=== PATIENT | female | born 1955 | race Caucasian/White ===

== ENCOUNTER → 2016-04-05 | Outpatient (CLI) | payer MEDICARE, MEDICAID ==
[~2016-04-05] MED LIST: ASPI81TA85 PO; CALC600T7 PO; CLAR10CA3 PO; COLA100C PO; CYCL10TA PO; DOCU10CA PO; FOSA70TA PO; HYDR25TAB PO; LISI10TA4 PO; LORT5TAB PO; NAPR500T2 PO; ROSU10TA PO; TRAM50TA2 PO; TYLE325T5 PO
--- NOTE | 2016-04-05 12:17 | REPMRS ---
Patient History The patient states she has not had a clinical breast exam in over a year. Patient is postmenopausal. Family history of prostate cancer in father at age 50 or over and ovarian cancer in sister under age 50. Digital Woman Screen Mammo: April 05, 2016 - Exam #: [id number] Bilateral CC and MLO view(s) were taken. Technologist: Silke Pena, Technologist Prior study comparison: May 27, 2014, digital woman screen mammo performed at [facility]. June 01, 2013, digital woman screen mammo performed at [facility]. February 19, 2012, digital woman screen mammo performed at [facility]. FINDINGS: The breast tissue is almost entirely fat. There has been no change in the appearance of the mammogram from the prior studies. There is no interval development of dominant mass, architectural distortion, or clustered microcalcification typical of malignancy. ASSESSMENT: BI-RADS/ACR category 1 mammogram. Negative. Recommendation Routine screening mammogram of both breasts in 1 year (for women over age 40). This mammogram was interpreted with the aid of an FDA-approved computer-aided dectection system. Electronically Signed By: Moose Louis MD 04/05/16 [id number]
== END ==
LOC: M WHC 10:03
PROVIDERS: ATTEND Student in an Organized Health Care Education/Training Program
DX: Z12.31 Encounter for screening mammogram for malignant neoplasm of breast (principal)

== ENCOUNTER → 2016-05-24 | Outpatient (CLI) | payer MEDICARE, MEDICAID | LOC: M RAD 10:05 | PROVIDERS: ATTEND Podiatrist | DX: M66.871 Spontaneous rupture of other tendons, right ankle and foot (principal) ==

== ENCOUNTER → 2016-06-05 | Outpatient (CLI) | payer MEDICARE, MEDICAID ==
--- NOTE | 2016-06-05 11:13 | REP ---
MRI RIGHT ANKLE: TECHNIQUE: Sagittal proton density, STIR, axial proton density fat sat, T1, coronal proton density, STIR. Achilles, anterior tibial, posterior tibial, flexor hallucis longus, flexor digitorum longus, and peroneal tendons are all intact with no tear. Anterior and posterior talofibular, calcaneofibular, and deltoid ligaments are intact. Plantar fascia demonstrates no abnormal signal. There is no evidence of plantar fasciitis. The plantar tendon is intact. There is a relatively normal amount of joint fluid present. There is no ganglion cyst. There is no bone marrow edema or occult fracture. There is no osteochrondral defect of the tibial talar joint. IMPRESSION: Essentially unremarkable MRI right ankle. No evidence of tendon or ligament tear. Signed by Emiliano Batista MD 06/05/2016 12:43 P
== END ==
LOC: M RAD 09:24
PROVIDERS: ATTEND Podiatrist
DX: M66.871 Spontaneous rupture of other tendons, right ankle and foot (principal)

== ENCOUNTER → 2016-07-23 | Outpatient (CLI) | payer MEDICARE, MEDICAID ==
[~2016-07-23] MED LIST changes: -COLA100C PO; +COLA100C3 PO; +CRES10TA32 PO; +PANT40TA2 PO; -ROSU10TA PO
[2016-07-23 11:27] LABS: BASO # 0.1 K/mm3 (0.0-0.2); BASO % 0.6 % (0.0-1.0); EOS # 0.5 K/mm3 (0.0-0.50); EOS % 4.8 % (0.0-3.0); LARGE UNSTAINED CELL # 0.1 K/mm3 (0.0-0.4); LARGE UNSTAINED CELL % 1.1 % (0.0-4.0); LYMPH # 2.4 K/mm3 (1.5-4.5); LYMPH % 23.7 % (24.0-44.0); MEAN CORPUSCULAR HEMOGLOBIN 31.1 pg (27.0-33.0); MEAN CORPUSCULAR HGB CONC 33.9 g/dl (32.0-36.5); MEAN CORPUSCULAR VOLUME 91.9 fl (80.0-96.0); MONO # 0.5 K/mm3 (0.0-0.8); MONO % 4.4 % (0.0-5.0); NEUTROPHILS # 6.6 K/mm3 (1.8-7.7); NEUTROPHILS % 65.3 % (36.0-66.0); PLATELET COUNT, AUTOMATED 200 k/mm3 (150-450); RED CELL DISTRIBUTION WIDTH 12.5 % (11.5-14.5); WHITE BLOOD COUNT 10.1 K/mm3 (4.0-10.0)
[2016-07-23 11:30] LABS: ALBUMIN 3.7 GM/DL (3.2-5.2); ALBUMIN/GLOBULIN RATIO 1.12 (1.00-1.93); ALKALINE PHOSPHATASE 80 U/L (45-117); ALT/SGPT 21 U/L (12-78); ANION GAP 6 MEQ/L (8-16); AST/SGOT 11 U/L (15-37); BILIRUBIN,TOTAL 0.3 MG/DL (0.2-1.0); BLOOD UREA NITROGEN 14 MG/DL (7-18); CALCIUM LEVEL 8.6 MG/DL (8.5-10.1); CARBON DIOXIDE LEVEL 32 MEQ/L (21-32); CHLORIDE LEVEL 103 MEQ/L (98-107); CREATININE FOR GFR 0.77 MG/DL (0.55-1.02); GLOMERULAR FILTRATION RATE > 60.0 (>51); GLUCOSE, FASTING 108 MG/DL (70-105); POTASSIUM SERUM 3.9 MEQ/L (3.5-5.1); SODIUM LEVEL 141 MEQ/L (136-145)
--- NOTE | 2016-07-23 19:06 | ECGEPIP ---
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
== END ==
LOC: M LAB 10:22
PROVIDERS: ATTEND Podiatrist
DX: M21.619 Bunion of unspecified foot (principal)

== ENCOUNTER → 2016-08-02 | Day surgery (SDC) | payer MEDICARE, MEDICAID ==
[~2016-08-02] VITALS: Ht 180.3 cm; Wt 111.1 kg
[~2016-08-02] MED LIST changes: +BACITRACIN PWD 50,000 UNITS VIAL As Ordered ONE; +BUPIVACAINE HCL 0.5% 30 ML VIAL As Ordered ONE; +LIDOCAINE 2% INJ 100 MG/5 ML SDV (FOR ANES.) As Ordered ONE; +LIDOCAINE 2% MDV 20 ML VIAL As Ordered ONE; +LR 1,000 ML IV ONE; +MIDAZOLAM INJ 2 MG/2 ML VIAL (J2250) As Ordered ONE; +NEOSPORIN GU IRRIG 20 ML VIAL As Ordered ONE; +ONDANSETRON 4MG/2ML VIAL (J2405) As Ordered ONE; +PERCOCET 5MG/325MG TAB PO PRN; +PROPOFOL 200 MG/20 ML VIAL As Ordered ONE; +dexameTHASONE 4 MG/ML 1ML VIAL (J1100) As Ordered ONE; +fentaNYL 100 MCG/2 ML INJECTION (J3010) As Ordered ONE
[2016-08-02 11:05] VITALS: BP 142/83
--- NOTE | 2016-08-02 15:12 | REP ---
Clinical: Bunionectomy. Technique: Portable AP, lateral, bilateral oblique views of the right foot. Findings: The patient is status post bunionectomy with postsurgical changes involving the first metatarsal bone. Satisfactory alignment is noted. Overlying postsurgical soft tissue swelling and subcutaneous emphysema noted. Remainder examination appears normal. Impression: Status post bunionectomy procedure. Signed by Lloyd Cordova MD 08/02/2016 10:08 A
--- NOTE | 2016-08-03 10:57 | RO ---
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 PROCEDURE: HUMBERTO BUNIONECTOMY WITH INTERNAL SCREW FIXATION 3.0 mm x 22 mm x 1 RIGHT FOOT: KIDNER PROCEDURE, RIGHT FOOT, WITH BIOCOMPOSITE SCREW FIXATION 4.5 x 14 mm BONE ANCHOR SURGEON: Dr. Aamir Chen DPM BAKE ROOM WORKER: None. ANESTHESIA: Local MAC, irrigation dilute bacitracin, neomycin and polymyxin B solution. HEMOSTASIS: Ankle pneumatic tourniquet at 225 mmHg for 84 minutes. HARDWARE UTILIZED: Dart-Fire 3.0 x 22 mm headed compression screw and a BioComposite Corkscrew 4.5 x 14 mm. DESCRIPTION OF PROCEDURE: On 08/02/2016, this 60-year-old white female was taken from her hospital room to the operating room and placed on the operating table in the supine position. Following the induction of IV sedation and local and regional anesthesia, the right lower extremity was prepped and draped in the usual aseptic manner. The right lower extremity was elevated 45 degrees from the horizontal plane for the purpose of preoperative exsanguination of the limb. During this three minute time period, an ankle pneumatic tourniquet was applied just proximal to the medial and lateral malleolus, well-padded site. To further exsanguinate the limb, a Iglesia's Esmarch bandage was placed circumferentially, extending from digits to distal edge ankle pneumatic tourniquet. Ankle pneumatic tourniquet was rapidly inflated to 250 mmHg, purpose of intraoperative hemostasis. Iglesia's Esmarch bandage was removed. Right lower extremity was returned to the operating table, sterile draping was completed and the following procedure was performed: HUMBERTO BUNIONECTOMY WITH INTERNAL SCREW FIXATION 3.0 mm x 22 mm x 1 RIGHT FOOT: Attention was directed to the patient's right foot. There was noted to be a hallux valgus deformity. At this time, a 5 cm incision was placed over the first metatarsophalangeal joint medial to the extensor tendon. The incision was deepened through the subcutaneous tissues and all coursing venous tributaries were identified, underscored, clamped, cut, ligated and electrocoagulated as necessary. Dissection was carried down in the same plane and a linear capsulotomy was performed in the same plane as the original skin incision. The capsular and periosteal structures were then dissected free in one continuous layer dorsally, medially and laterally, thus creating a capsular periosteal type envelope. This allowed me to view the hypertrophied medial eminence of the first metatarsal, which was osteotomized from distal to proximal, through and through. This was extirpated from the wound. Dissection was then carried into the first intermetatarsal space where dissection was carried down to the level of the fibular sesamoid and the conjoined tendons were sharply dissected free from the fibular sesamoid. Humberto V-shaped osteotomy was then performed in the distal metaphysis of the first metatarsal with a long plantar and short dorsal wing. There was a small cyst noted on the distal aspect of the head of the first metatarsal, which was then curetted out to remove the lining of the cyst. The wound was then flushed with copious amounts of dilute bacitracin, neomycin and polymyxin B solution. Upon completion of this osteotomy, the capital fragment was transposed approximately one-third the width of the shaft of the first metatarsal and fixated with a 3.0 x 22 mm headless compression screw. The screw did not penetrate the inferior cartilage on direct visualization. Redundant cortical spike was then osteomized from dorsal to plantar, through and through and extirpated from the wound. Medial surface was rasped to a smooth contour with a handheld rasp. The wound was flushed with copious amounts of dilute bacitracin, neomycin and polymyxin B solution. Attention was directed towards closure where the capsular structures were coapted and maintained using #2-0 Monocryl in a simple interrupted type fashion. Subcutaneous tissues were coapted and maintained using #5-0 Monocryl in a simple interrupted type fashion. Skin incision was coapted and maintained using #5-0 Monocryl in a continuous subcuticular type fashion. This was additionally reinforced with Steri-Strips. Attention was then directed to the medial surface of the foot where the following procedure was performed: KIDNER PROCEDURE, RIGHT FOOT, WITH BIOCOMPOSITE SCREW FIXATION 4.5 x 14 mm BONE ANCHOR: Attention was directed to the patient's foot where there was noted to be hypertrophy of the tuberosity of the navicular, as well as an os tibialis externum. At this time, a lazy S incision was placed, measuring approximately 6 cm in length. Dissection was then carried down to the level of the posterior tibial tendon sheath, which was then entered. The tendon was traced in a distal direction and a periosteal incision was placed on the dorsal navicular. The end of the navicular was then exposed and the os tibialis externum was identified and then sharply dissected free from the posterior tibial tendon. Utilizing a bone anchor for positioning, an osteotomy was then placed through the hypertrophied navicular, thinning the prominence. Bone anchor was then placed into the bone utilizing the appropriate technique and tap . C-arm imagery was used to verify position of the BioComposite screw. Then, utilizing #2 FiberWire and TigerWire, the posterior tibial tendon was drawn into the navicular with a Tabby knot stitch, good apposition of the tendon and bone was noted. This was additionally reinforced utilizing #2 FiberWire along the periosteum of the navicular. The extensor sheath was repaired with #5-0 Monocryl in a simple interrupted type fashion, subcutaneous tissues were coapted and maintained using #4-0 Monocryl in a simple interrupted type fashion, skin incision was coapted and maintained using #4-0 Prolene in a simple interrupted and horizontal mattress type fashion. Following the completion of the surgical procedure, 4 mg of dexamethasone sodium phosphate was instilled around the first metatarsophalangeal joint region. A compressive dressing was then applied with Adaptic, 4 x 4's, 4 x 4 splints and Honey. A well-molded fiberglass cast was then placed with the patient's foot in dorsiflexion and in version. No areas of irritation were noted. When the tourniquet was released, instantaneous capillary filling time was noted to her right foot. The patient having apparently tolerated the surgical procedure well was taken from the operating room to the recovery room, vital signs stable, patient afebrile, further monitoring by the anesthesia department. All surgical specimens removed during the operative procedure were sent to pathology for gross microscopic examination. Postoperative instructions given upon discharge. JOHN
== END | disposition home or self-care (01) ==
LOC: M SDC 05:49
PROVIDERS: ATTEND Podiatrist
DX: M20.11 Hallux valgus (acquired), right foot (principal); M21.6X1 Other acquired deformities of right foot; I10 Essential (primary) hypertension; E78.5 Hyperlipidemia, unspecified; Z79.82 Long term (current) use of aspirin; Z79.899 Other long term (current) drug therapy; F17.210 Nicotine dependence, cigarettes, uncomplicated
CPT/HCPCS: 28238; 28296; 73630; 88300; 97116; C1713; C1776; J0690; J1100; J2250; J2405; J3010

== ENCOUNTER 2016-11-13 08:07 | Outpatient (RCR) | payer MEDICARE, MEDICAID ==
[~2016-11-13 08:07] MED LIST changes: -BACITRACIN PWD 50,000 UNITS VIAL As Ordered ONE; -BUPIVACAINE HCL 0.5% 30 ML VIAL As Ordered ONE; -COLA100C3 PO; +COLA100C5 PO; -LIDOCAINE 2% INJ 100 MG/5 ML SDV (FOR ANES.) As Ordered ONE; -LIDOCAINE 2% MDV 20 ML VIAL As Ordered ONE; -LR 1,000 ML IV ONE; -MIDAZOLAM INJ 2 MG/2 ML VIAL (J2250) As Ordered ONE; -NAPR500T2 PO; +NAPR500T3 PO; -NEOSPORIN GU IRRIG 20 ML VIAL As Ordered ONE; -ONDANSETRON 4MG/2ML VIAL (J2405) As Ordered ONE; -PERCOCET 5MG/325MG TAB PO PRN; -PROPOFOL 200 MG/20 ML VIAL As Ordered ONE; -dexameTHASONE 4 MG/ML 1ML VIAL (J1100) As Ordered ONE; -fentaNYL 100 MCG/2 ML INJECTION (J3010) As Ordered ONE
== END 2016-11-14 ==
LOC: M PT 08:07
PROVIDERS: ATTEND Podiatrist
DX: Z51.89 Encounter for other specified aftercare (principal)
CPT/HCPCS: 97035; 97110; 97140; 97161; G8978; G8979

== ENCOUNTER 2016-12-09 08:30 | Outpatient (RCR) | payer MEDICARE, MEDICAID | END 2016-12-14 | LOC: M PT 08:30 | PROVIDERS: ATTEND Podiatrist | DX: Z51.89 Encounter for other specified aftercare (principal) | CPT/HCPCS: 97035; 97110; 97140; G8979; G8980 ==

== ENCOUNTER → 2017-04-17 | Outpatient (REF) | payer MEDICARE, MEDICAID ==
[2017-04-17 19:06] LABS: BASO # 0.1 10^3/uL (0.0-0.2); BASO % 0.9 % (0.0-1.0); EOS # 0.3 10^3/uL (0.0-0.50); EOS % 3.2 % (0.0-3.0); HEMATOCRIT 46.8 % (36.0-47.0); HEMOGLOBIN 16.2 g/dl (12.0-16.0); IMMATURE GRANULOCYTE % 0.3 % (0-0); LYMPH # 2.5 10^3/uL (1.5-4.5); LYMPH % 28.1 % (24.0-44.0); MEAN CORPUSCULAR HGB CONC 34.6 g/dl (32.0-36.5); MEAN CORPUSCULAR VOLUME 86.7 fl (80.0-96.0); MONO # 0.7 10^3/uL (0.0-0.8); MONO % 7.4 % (0.0-5.0); NEUTROPHILS # 5.4 10^3/uL (1.8-7.7); NEUTROPHILS % 60.1 % (36.0-66.0); PLATELET COUNT, AUTOMATED 210 10^3/uL (150-450); RED CELL DISTRIBUTION WIDTH 12.4 % (11.5-14.5); WHITE BLOOD COUNT 8.9 10^3/uL (4.0-10.0)
[2017-04-17 19:09] LABS: ESTIMATED AVERAGE GLUCOSE 123 MG/DL (60-110); HEMOGLOBIN A1c 5.9 %
[2017-04-17 20:01] LABS: ALBUMIN 4.2 GM/DL (3.2-5.2); ALKALINE PHOSPHATASE 78 U/L (45-117); ALT/SGPT 18 U/L (12-78); ANION GAP 7 MEQ/L (8-16); AST/SGOT 10 U/L (7-37); BILIRUBIN,TOTAL 0.4 MG/DL (0.2-1.0); BLOOD UREA NITROGEN 14 MG/DL (7-18); CALCIUM LEVEL 9.1 MG/DL (8.8-10.2); CARBON DIOXIDE LEVEL 31 MEQ/L (21-32); CHLORIDE LEVEL 101 MEQ/L (98-107); CHOLESTEROL LEVEL 167 MG/DL (<200); CHOLESTEROL RISK RATIO 2.929 (<5); CREATININE FOR GFR 0.85 MG/DL (0.55-1.30); GLOMERULAR FILTRATION RATE > 60.0 (>45); GLUCOSE, FASTING 122 MG/DL (70-100); HDL CHOLESTEROL 57 MG/DL (>40); LDL CHOLESTEROL 77.2 MG/DL (<100); NON-HDL-C 110 MG/DL; POTASSIUM SERUM 3.6 MEQ/L (3.5-5.1); SODIUM LEVEL 139 MEQ/L (136-145); TOTAL PROTEIN 7.2 GM/DL (6.4-8.2); TRIGLYCERIDES LEVEL 164 MG/DL (<150)
== END ==
LOC: M SFHCPLAZ 15:40
DX: Z00.00 Encounter for general adult medical examination without abnormal findings (principal); J44.9 Chronic obstructive pulmonary disease, unspecified; I10 Essential (primary) hypertension; M54.9 Dorsalgia, unspecified; J30.9 Allergic rhinitis, unspecified; M85.9 Disorder of bone density and structure, unspecified; K59.00 Constipation, unspecified; Z79.899 Other long term (current) drug therapy
CPT/HCPCS: 80053

== ENCOUNTER → 2017-04-17 | Outpatient (CLI) | payer MEDICARE, MEDICAID | LOC: M WHC 13:57 | DX: Z12.31 Encounter for screening mammogram for malignant neoplasm of breast (principal); Z78.0 Asymptomatic menopausal state; J44.9 Chronic obstructive pulmonary disease, unspecified; I10 Essential (primary) hypertension; M54.9 Dorsalgia, unspecified; J30.9 Allergic rhinitis, unspecified; M85.9 Disorder of bone density and structure, unspecified; K59.00 Constipation, unspecified; Z79.899 Other long term (current) drug therapy | CPT/HCPCS: 77067; 80053 ==

== ENCOUNTER → 2017-06-17 | Outpatient (REF) | payer MEDICARE, MEDICAID ==
[2017-06-17 12:11] LABS: ERYTHROCYTE SEDIMENTATION RATE 4 mm/hr (0-30)
[2017-06-17 12:12] LABS: ANION GAP 4 MEQ/L (8-16); BLOOD UREA NITROGEN 13 MG/DL (7-18); C REACTIVE PROTEIN QUANTITATIV < 0.30 MG/DL (0.00-0.30); CALCIUM LEVEL 9.2 MG/DL (8.8-10.2); CARBON DIOXIDE LEVEL 30 MEQ/L (21-32); CHLORIDE LEVEL 104 MEQ/L (98-107); CPK CREATINE PHOSPHOKINASE 49 U/L (26-192); CREATININE FOR GFR 0.86 MG/DL (0.55-1.30); GLOMERULAR FILTRATION RATE > 60.0 (>45); GLUCOSE, FASTING 124 MG/DL (70-100); POTASSIUM SERUM 4.4 MEQ/L (3.5-5.1); SODIUM LEVEL 138 MEQ/L (136-145)
== END ==
LOC: M SFHCPLAZ 09:51
DX: M79.1 Myalgia (principal)
CPT/HCPCS: 82550

== ENCOUNTER → 2017-09-19 | Outpatient (CLI) | payer MEDICARE, MEDICAID ==
[2017-09-19 10:34] LABS: ANION GAP 7 MEQ/L (8-16); BLOOD UREA NITROGEN 16 MG/DL (7-18); CARBON DIOXIDE LEVEL 31 MEQ/L (21-32); CHLORIDE LEVEL 104 MEQ/L (98-107); CREATININE FOR GFR 0.81 MG/DL (0.55-1.30); GLOMERULAR FILTRATION RATE > 60.0 (>45); GLUCOSE, FASTING 112 MG/DL (70-100); POTASSIUM SERUM 3.8 MEQ/L (3.5-5.1); SODIUM LEVEL 142 MEQ/L (136-145)
== END ==
LOC: M LAB 09:04
DX: Z01.818 Encounter for other preprocedural examination (principal); M25.512 Pain in left shoulder
CPT/HCPCS: 71046

== ENCOUNTER → 2017-09-23 | Outpatient (CLI) | payer MEDICARE, MEDICAID ==
[~2017-09-23] MED LIST changes: -ASPI81TA85 PO; -CALC600T7 PO; -CLAR10CA3 PO; -COLA100C5 PO; -CRES10TA32 PO; -CYCL10TA PO; -DOCU10CA PO; -FOSA70TA PO; -HYDR25TAB PO; -LISI10TA4 PO; -LORT5TAB PO; +MIDAZOLAM INJ 2 MG/2 ML VIAL (J2250) As Ordered; -NAPR500T3 PO; -PANT40TA2 PO; +PROHANCE 279.3MG/ML 15ML VIAL (A9576) As Ordered; +PROHANCE 279.3MG/ML 5ML VIAL (A9576) As Ordered; -TRAM50TA2 PO; -TYLE325T5 PO; +fentaNYL 100 MCG/2 ML INJECTION (J3010) As Ordered
== END ==
LOC: M RAD 08:02
DX: M50.31 Other cervical disc degeneration, high cervical region (principal); M50.21 Other cervical disc displacement, high cervical region; M50.222 Other cervical disc displacement at C5-C6 level
CPT/HCPCS: J2250

== ENCOUNTER 2017-12-16 07:39 | Outpatient (CLI) | payer MEDICARE, MEDICAID ==
[2017-12-16] MEDS ORDERED: fentaNYL 100 MCG/2 ML INJECTION (J3010) As Ordered (08:20)
[2017-12-16] MEDS ORDERED: MIDAZOLAM INJ 2 MG/2 ML VIAL (J2250) As Ordered (08:20)
== END 2017-12-16 09:55 | disposition home or self-care (01) ==
LOC: M SDC 07:39
DX: S46.012A Strain of muscle(s) and tendon(s) of the rotator cuff of left shoulder, initial encounter (principal); S46.212A Strain of muscle, fascia and tendon of other parts of biceps, left arm, initial encounter; X58.XXXA Exposure to other specified factors, initial encounter; Y92.89 Other specified places as the place of occurrence of the external cause; M19.012 Primary osteoarthritis, left shoulder; M25.412 Effusion, left shoulder; I10 Essential (primary) hypertension; E78.5 Hyperlipidemia, unspecified; J44.9 Chronic obstructive pulmonary disease, unspecified; F40.240 Claustrophobia; Z79.899 Other long term (current) drug therapy; Z79.82 Long term (current) use of aspirin; Z91.048 Other nonmedicinal substance allergy status
CPT/HCPCS: 99156

== ENCOUNTER → 2018-03-05 | Outpatient (REF) | payer MEDICARE, MEDICAID ==
[~2018-03-05] MED LIST changes: +ASPI81TA85 PO; +CALC600T7 PO; +CLAR10CA3 PO; +COLA100C5 PO; +CRES10TA32 PO; +CYCL10TA PO; +DOCU10CA PO; +FOSA70TA PO; +HYDR25TAB PO; +LISI10TA4 PO; +LORT5TAB PO; -MIDAZOLAM INJ 2 MG/2 ML VIAL (J2250) As Ordered; +NAPR-885 PO; +PANT40TA3 PO; -PROHANCE 279.3MG/ML 15ML VIAL (A9576) As Ordered; -PROHANCE 279.3MG/ML 5ML VIAL (A9576) As Ordered; +TRAM50TA2 PO; +TYLE325T5 PO; -fentaNYL 100 MCG/2 ML INJECTION (J3010) As Ordered
[2018-03-05 17:26] LABS: BLOOD UREA NITROGEN 17 MG/DL (7-18); CALCIUM LEVEL 8.6 MG/DL (8.8-10.2); CARBON DIOXIDE LEVEL 31 MEQ/L (21-32); CHLORIDE LEVEL 101 MEQ/L (98-107); CREATININE FOR GFR 0.91 MG/DL (0.55-1.30); GLOMERULAR FILTRATION RATE > 60.0 (>45); GLUCOSE, FASTING 148 MG/DL (70-100); POTASSIUM SERUM 3.6 MEQ/L (3.5-5.1); SODIUM LEVEL 138 MEQ/L (136-145)
== END ==
LOC: M SFHCPLAZ 15:19
DX: Z01.818 Encounter for other preprocedural examination (principal)
CPT/HCPCS: 36415; 80048; 93005; G0463

== ENCOUNTER 2018-05-26 09:58 | Emergency (ER) | payer MEDICARE, MEDICAID ==
[~2018-05-26] VITALS: Ht 177.8 cm; Wt 115.1 kg
[2018-05-26] MEDS ORDERED: COMBIVENT INH (10:07)
[2018-05-26] MEDS ORDERED: ALBU17IN2 INH (10:07)
[2018-05-26] MEDS ORDERED: IPRATROPIUM 0.5MG/ALBUTEROL 2.5MG INH SOL UD 3ML (DUONEB)(J7620) NEB SCH (10:45)
[2018-05-26 11:30] LABS: INFLUENZA A AMPLIFICATION POSITIVE (NEGATIVE); INFLUENZA B AMPLIFICATION NEGATIVE (NEGATIVE)
--- NOTE | 2018-05-26 11:32 | REP ---
Chest two views HISTORY: Cough Comparison: 09/19/2017 The lungs are clear. The heart is normal in size. The pulmonary vasculature is normal in appearance. The bony structure is intact. IMPRESSION: No acute disease. Electronically Signed by Carroll Rubio MD 05/26/2018 11:22 A
[2018-05-26] MEDS ORDERED: BENZ200C70 PO (12:12)
[2018-05-26] MEDS ORDERED: OSEL75CA PO (12:12)
[2018-05-26] MEDS ORDERED: MUCI600T37 PO (12:12)
[2018-05-26 12:27] VITALS: BP 104/65
[2018-05-26] MEDS ORDERED: PRED20TA PO (12:40)
== END 2018-05-26 12:44 | disposition home or self-care (01) ==
LOC: M ED 09:58
DX: J09.X2 Influenza due to identified novel influenza A virus with other respiratory manifestations (principal); I10 Essential (primary) hypertension; J44.9 Chronic obstructive pulmonary disease, unspecified; J45.909 Unspecified asthma, uncomplicated; K21.9 Gastro-esophageal reflux disease without esophagitis; E78.00 Pure hypercholesterolemia, unspecified; F33.9 Major depressive disorder, recurrent, unspecified; Z79.899 Other long term (current) drug therapy; Z79.82 Long term (current) use of aspirin; F17.210 Nicotine dependence, cigarettes, uncomplicated

== ENCOUNTER → 2018-06-12 | Outpatient (CLI) | payer MEDICARE, MEDICAID ==
[~2018-06-12] MED LIST changes: +ALBU17IN2 INH; +BENZ200C70 PO; +COMBIVENT INH; +HYDR-2541 PO; +MUCI600T37 PO; +OSEL75CA PO; +PRED20TA PO
--- NOTE | 2018-06-12 10:36 | REP ---
Chest x-ray: Two views. History: Cough. Abnormal breath sounds on exam. Comparison study: May 26, 2018. Findings: The lungs are slightly hyperinflated as before but free of infiltrate. Pleural angles are sharp. Heart is not enlarged. There are degenerative changes in the thoracic spine. Pulmonary vasculature is not increased. Impression: Hyperinflation. Otherwise no acute disease. Electronically Signed by Nixon Louis MD 06/12/2018 10:28 A
== END ==
LOC: M RAD 09:43
PROVIDERS: ATTEND Student in an Organized Health Care Education/Training Program
DX: R91.8 Other nonspecific abnormal finding of lung field (principal)

== ENCOUNTER → 2018-11-06 | Outpatient (CLI) | payer MEDICARE, MEDICAID ==
[~2018-11-06] MED LIST changes: +CRES10TA PO; -CRES10TA32 PO
--- NOTE | 2018-11-06 12:39 | REPMRS ---
Patient History The patient states she had a clinical breast exam in 10/2018. Family history of prostate cancer at age 50 or over in father, ovarian cancer under age 50 in sister. 3D TOMOSYNTHESIS WAS PERFORMED. The [facility] lifetime risk for breast cancer is 6.3%. Digital Woman Screen Mammo: November 06, 2018 - Exam #: [id number] Bilateral CC and MLO view(s) were taken. Technologist: Alba Zamorano Technologist Prior study comparison: April 17, 2017, digital woman screen mammo performed at [facility]. April 05, 2016, digital woman screen mammo performed at [facility]. FINDINGS: There are scattered fibroglandular densities. There has been no change in the appearance of the mammogram from the prior studies. There is a mild amount of residual fibroglandular tissue which is fairly symmetric. There is no interval development of dominant mass, architectural distortion, or clustered microcalcification suggestive of malignancy. Assessment: BI-RADS/ACR category 1 mammogram. Negative Mammogram. Recommendation Routine screening mammogram in 1 year (for women over age 40). This mammogram was interpreted with the aid of an FDA-approved computer-aided dectection system. Electronically Signed By: Emiliano Batista MD 11/06/18 [id number]
--- NOTE | 2018-11-11 13:34 | DEXA ---
AP SPINE L1 - L4 0.964 -1.9 -0.5 LT FEMUR TOTAL 0.985 -0.2 0.8 LT NECK 0.845 -1.4 -0.8 RT FEMUR TOTAL 0.982 -0.2 0.8 RT NECK 0.876 -1.2 0.2 TOTAL BODY TOTAL OTHER COMMENTS: There is low bone density of the spine and hips. The decreased density of the spine does not represent a significant change. The decreased density of the left hip does represent a significant change. The decreased density of the right hip does represent a significant change. The density of the spine has decreased 2.2% since the initial exam on 03/20/2012. The spine density has decreased 0.4% since the most recent exam on 04/17/2015. The density of the left hip has decreased 4.7% since the initial exam on 03/20/2012. The density of the left hip has decreased 7.3% since the most recent exam on 04/17/2015. The density of the right hip has decreased 1.2% since the initial exam on 03/20/2012. The density of the right hip has decreased 2.5% since the most recent exam on 04/17/2015. FOLLOW-UP: Recommendation for the next bone density exam: 2 years. JOHN
== END ==
LOC: M WHC 10:29
PROVIDERS: ATTEND Student in an Organized Health Care Education/Training Program
DX: Z01.419 Encounter for gynecological examination (general) (routine) without abnormal findings (principal); Z12.31 Encounter for screening mammogram for malignant neoplasm of breast; Z13.820 Encounter for screening for osteoporosis; Z80.42 Family history of malignant neoplasm of prostate; Z80.41 Family history of malignant neoplasm of ovary; Z78.0 Asymptomatic menopausal state
CPT/HCPCS: 77063; 77067; 77080; G0101

== ENCOUNTER → 2018-11-06 | Outpatient (REF) | payer MEDICARE, MEDICAID ==
[2018-11-11 14:31] LABS: HPV HYBRID CAPTURE II Negative (Negative)
== END ==
LOC: M SFHCWAGY 10:52
PROVIDERS: ATTEND Nurse Practitioner Women's Health
DX: Z12.4 Encounter for screening for malignant neoplasm of cervix (principal); A59.09 Other urogenital trichomoniasis
CPT/HCPCS: 87624; G0123

== ENCOUNTER → 2018-12-04 | Outpatient (REF) | payer MEDICARE, MEDICAID ==
[~2018-12-04] MED LIST changes: -ALBU17IN2 INH; +PROV108A INH
== END ==
LOC: M LAB REF 19:02
DX: D22.5 Melanocytic nevi of trunk (principal)
CPT/HCPCS: 88304; G0463

== ENCOUNTER → 2019-01-06 | Outpatient (CLI) | payer MEDICARE, MEDICAID ==
[2019-01-06 09:46] LABS: HEMATOCRIT 47.7 % (36.0-47.0); HEMOGLOBIN 16.1 g/dl (12.0-15.5); MEAN CORPUSCULAR HGB CONC 33.8 g/dl (32.0-36.5); MEAN CORPUSCULAR VOLUME 88.8 fl (80.0-96.0); PLATELET COUNT, AUTOMATED 219 10^3/uL (150-450); RED BLOOD COUNT 5.37 10^6/uL (4.00-5.40); WHITE BLOOD COUNT 6.7 10^3/uL (4.0-10.0)
[2019-01-06 09:48] LABS: APPEARANCE, URINE CLOUDY (CLEAR); BACTERIA, URINE AUTO 1+ (NEGATIVE); BILIRUBIN, URINE AUTO NEGATIVE (NEGATIVE); BLOOD, URINE BLOOD 1+ (NEGATIVE); COLOR, URINE YELLOW (YELLOW); GLUCOSE, URINE (UA) AUTO NEGATIVE (NEGATIVE); KETONE, URINE AUTO NEGATIVE (NEGATIVE); LEUKOCYTE ESTERASE, URINE AUTO 3+ (NEGATIVE); MUCUS, URINE SMALL (NEGATIVE); NITRITE, URINE AUTO NEGATIVE (NEGATIVE); PROTEIN, URINE AUTO NEGATIVE (NEGATIVE); RBC, URINE AUTO 17 /HPF (0-3); SPECIFIC GRAVITY URINE AUTO 1.006 (1.002-1.035); SQUAMOUS EPITHELIAL CELL UR AU 2 /HPF (0-6); UROBILINOGEN, URINE AUTO 0.2 mg/dL (0.0-2.0); WBC, URINE AUTO 23 /HPF (0-3)
[2019-01-06 10:04] LABS: HEMOGLOBIN A1c 6.5 %
[2019-01-06 10:26] LABS: ALBUMIN 3.7 GM/DL (3.2-5.2); ALT/SGPT 24 U/L (12-78); BILIRUBIN,TOTAL 0.6 MG/DL (0.2-1.0); BLOOD UREA NITROGEN 14 MG/DL (7-18); CALCIUM LEVEL 9.2 MG/DL (8.8-10.2); CARBON DIOXIDE LEVEL 32 MEQ/L (21-32); CHLORIDE LEVEL 100 MEQ/L (98-107); CHOLESTEROL LEVEL 156 MG/DL (<200); CREATININE FOR GFR 0.79 MG/DL (0.55-1.30); GLOMERULAR FILTRATION RATE > 60.0 (>45); GLUCOSE, FASTING 119 MG/DL (70-100); HDL CHOLESTEROL 60 MG/DL (>40); LDL CHOLESTEROL 74 MG/DL (<100); NON-HDL-C 96 MG/DL; POTASSIUM SERUM 3.8 MEQ/L (3.5-5.1); SODIUM LEVEL 138 MEQ/L (136-145); TRIGLYCERIDES LEVEL 112 MG/DL (<150)
--- NOTE | 2019-01-06 12:59 | REP ---
REASON: Tobacco abuse. PRIORS: None. As per the protocol, only lung window images were sent to the read station for interpretation. There are no abnormal nodules, masses, or opacities. IMPRESSION: Lung-RADS category 1. According to the revised Fleischner Society criteria, yearly low-dose lung screening CT is recommended. Electronically Signed by Griffin Grimaldo DO 01/06/2019 04:29 P
== END ==
LOC: M RAD 08:47
PROVIDERS: ATTEND Student in an Organized Health Care Education/Training Program
DX: Z00.00 Encounter for general adult medical examination without abnormal findings (principal); Z12.2 Encounter for screening for malignant neoplasm of respiratory organs; F17.210 Nicotine dependence, cigarettes, uncomplicated
CPT/HCPCS: 36415; 80053; 80061; 81001; 83036; 84443; 85027; G0297

== ENCOUNTER → 2020-06-12 | Outpatient (REF) | payer MEDICARE, MEDICAID ==
[~2020-06-12] MED LIST changes: -ASPI81TA85 PO; +ASPI81TA86 PO; +CALC-212 PO; -CALC600T7 PO; +CYCL-707 PO; -CYCL10TA PO; +HYDR-3490 PO; -HYDR25TAB PO; +LISI10TA22 PO; -LISI10TA4 PO; +PANT40TA29 PO; -PANT40TA3 PO
[2020-06-12 12:49] LABS: ALBUMIN 4.1 GM/DL (3.2-5.2); ALT/SGPT 17 U/L (12-78); BILIRUBIN,TOTAL 0.5 MG/DL (0.2-1.0); BLOOD UREA NITROGEN 17 MG/DL (7-18); CALCIUM LEVEL 9.5 MG/DL (8.8-10.2); CARBON DIOXIDE LEVEL 34 MEQ/L (21-32); CHLORIDE LEVEL 102 MEQ/L (98-107); CHOLESTEROL LEVEL 170 MG/DL (<200); CHOLESTEROL RISK RATIO 2.615 (<5); CREATININE FOR GFR 0.76 MG/DL (0.55-1.30); GLOMERULAR FILTRATION RATE > 60.0 (>45); GLUCOSE, FASTING 112 MG/DL (70-100); HDL CHOLESTEROL 65 MG/DL (>40); LDL CHOLESTEROL 80 MG/DL (<100); NON-HDL-C 105 MG/DL; SODIUM LEVEL 138 MEQ/L (136-145); TRIGLYCERIDES LEVEL 127 MG/DL (<150)
[2020-06-12 13:21] LABS: HEMOGLOBIN A1c 5.7 %
[2020-06-12 13:37] LABS: HIV 1&2 SCREEN CENTAUR NEGATIVE (NEGATIVE)
== END ==
LOC: M SFHCPLAZ 10:35
PROVIDERS: ATTEND Family Medicine
DX: Z11.4 Encounter for screening for human immunodeficiency virus [HIV] (principal); Z13.1 Encounter for screening for diabetes mellitus; Z11.59 Encounter for screening for other viral diseases; Z13.220 Encounter for screening for lipoid disorders; Z79.899 Other long term (current) drug therapy
CPT/HCPCS: 36415; 80053; 80061; 83036; 86803; 87389; G0463

== ENCOUNTER → 2020-08-23 | Outpatient (CLI) | payer MEDICARE, MEDICAID ==
--- NOTE | 2020-08-23 10:23 | REP ---
INDICATION: ENCOUNTER FOR SCREENING FOR LUNG CA. COMPARISON: None. TECHNIQUE: AFTER THE INITIAL TOPOGRAM THE PATIENT REFUSED THE CT EXAM. FINDINGS: PATIENT REFUSED EXAM IMPRESSION: PATIENT REFUSED EXAM <Electronically signed by Griffin Grimaldo > 08/23/20 1011
== END ==
LOC: M RAD 09:38
PROVIDERS: ATTEND Student in an Organized Health Care Education/Training Program
DX: Z12.2 Encounter for screening for malignant neoplasm of respiratory organs (principal)

== ENCOUNTER → 2020-09-27 | Outpatient (REF) | payer MEDICARE, MEDICAID ==
[2020-10-02 08:14] LABS: CREATININE, URINE 28.9 mg/dL (20.0-300.0); TRAMADOL, URINE Positive (Cutoff=200); TRAMADOL, URINE (GC/MS) 996 ng/mL (Cutoff=100)
== END ==
LOC: M SFHCPLAZ 16:54
PROVIDERS: ATTEND Family Medicine
DX: Z51.81 Encounter for therapeutic drug level monitoring (principal); Z79.899 Other long term (current) drug therapy; R07.9 Chest pain, unspecified; N95.0 Postmenopausal bleeding; H54.62 Unqualified visual loss, left eye, normal vision right eye; I10 Essential (primary) hypertension; E78.5 Hyperlipidemia, unspecified; J44.1 Chronic obstructive pulmonary disease with (acute) exacerbation; M54.9 Dorsalgia, unspecified; K59.00 Constipation, unspecified; Z91.09 Other allergy status, other than to drugs and biological substances; K21.9 Gastro-esophageal reflux disease without esophagitis; M85.80 Other specified disorders of bone density and structure, unspecified site; R73.01 Impaired fasting glucose; F17.211 Nicotine dependence, cigarettes, in remission

== ENCOUNTER → 2020-09-28 | Outpatient (REF) | payer MEDICARE, MEDICAID | LOC: M SFHCWAGY 13:03 | PROVIDERS: ATTEND Nurse Practitioner Women's Health | DX: Z12.4 Encounter for screening for malignant neoplasm of cervix (principal); N93.9 Abnormal uterine and vaginal bleeding, unspecified; N95.0 Postmenopausal bleeding; R87.618 Other abnormal cytological findings on specimens from cervix uteri | CPT/HCPCS: 58100; 87624; 88305; G0123 ==

== ENCOUNTER → 2020-10-09 | Outpatient (CLI) | payer MEDICARE, MEDICAID ==
--- NOTE | 2020-10-09 09:29 | REP ---
INDICATION: N93.9 ABNORMAL UTERINE BLEEDING,N96.0 POSTMENOPAUSAL BLEEDIN. COMPARISON: CTA/P 12/19/2013. TECHNIQUE: Transabdominal and endovaginal probes were utilized. FINDINGS: The bladder is well filled at 9.1 x 7.2 x 8.5 cm. Uterus anteverted it measures 7.3 x 2.6 x 3.6 cm. Endometrial stripe thickness is 5 mm within the left central aspect of the endometrial stripe is a 5 x 3 mm hyperechoic focus consistent with a polyp. Trace amount of fluid around it in the endometrial cavity. There is a subserosal fibroid in the anterior body of the uterus and myometrium measuring 1 x 0.9 x 0.7 cm. Uterine contour otherwise normal. No free fluid in the cul-de-sac. Right ovary is not visualized on transabdominal or endovaginal probes. No right adnexal mass or fluid collection. Left ovary is 1.9 x 1.9 x 1.4 cm. No adnexal mass or adjacent fluid. IMPRESSION: 1. The endometrial stripe is 5 mm and there is a slightly hyperechoic 5 x 3 mm polyp towards the left side of the endometrial stripe is centrally in the body of the uterus. Trace fluid in the endometrial cavity. This polyp must be viewed with some suspicion in a postmenopausal patient with the bleeding. 2. There is a subserosal fibroid 1 x 0.9 x 0.7 cm anterior body of the uterus. 3. Right ovary is not visualized. Left ovary unremarkable. <Electronically signed by Erich Morales > 10/09/20 0939
== END ==
LOC: M WHC 07:46
PROVIDERS: ATTEND Nurse Practitioner Women's Health
DX: N93.9 Abnormal uterine and vaginal bleeding, unspecified (principal); N95.0 Postmenopausal bleeding

== ENCOUNTER → 2020-10-23 | Outpatient (CLI) | payer MEDICARE, MEDICAID ==
[~2020-10-23] MED LIST changes: +BAYE81TA10 PO; +CETI-24 PO; +COMBAER6 INH; +NICO1DIS10 TOP
== END ==
LOC: M LABSMTC 10:07
PROVIDERS: ATTEND Anesthesiology
DX: Z01.812 Encounter for preprocedural laboratory examination (principal)

== ENCOUNTER 2020-10-27 12:31 | Day surgery (SDC) | payer MEDICARE, MEDICAID ==
[~2020-10-27] VITALS: Ht 177.8 cm; Wt 122.5 kg
[~2020-10-27 12:31] MED LIST changes: +LR 1,000 ML IV ONE
[2020-10-27 13:32] LABS: ALBUMIN 3.7 GM/DL (3.2-5.2); ALT/SGPT 24 U/L (12-78); BILIRUBIN,TOTAL 0.5 MG/DL (0.2-1.0); BLOOD UREA NITROGEN 17 MG/DL (7-18); CALCIUM LEVEL 8.9 MG/DL (8.8-10.2); CARBON DIOXIDE LEVEL 28 MEQ/L (21-32); CHLORIDE LEVEL 106 MEQ/L (98-107); CREATININE FOR GFR 0.74 MG/DL (0.55-1.30); GLOMERULAR FILTRATION RATE > 60.0 (>45); GLUCOSE, FASTING 114 MG/DL (70-100); POTASSIUM SERUM 3.9 MEQ/L (3.5-5.1); SODIUM LEVEL 139 MEQ/L (136-145); TOTAL PROTEIN 7.4 GM/DL (6.4-8.2)
[2020-10-27] MEDS ORDERED: MIDAZOLAM INJ 2MG/2ML VIAL (J2250 PER 1MG) As Ordered ONE (13:54)
[2020-10-27] MEDS ORDERED: dexameTHASONE 4 MG/ML 1ML VIAL (J1100 PER 1MG) As Ordered ONE (13:55)
[2020-10-27] MEDS ORDERED: LIDOCAINE 2% 100MG/5ML SDV (FOR ANES.) As Ordered ONE (13:55)
[2020-10-27] MEDS ORDERED: fentaNYL 100 MCG/2 ML INJECTION (J3010) As Ordered ONE ×2 (13:55→15:49)
[2020-10-27] MEDS ORDERED: propofoL 200 MG/20 ML VIAL As Ordered ONE (13:55)
[2020-10-27] MEDS ORDERED: ONDANSETRON 4MG/2ML VIAL As Ordered ONE (13:55)
[2020-10-27 14:19] LABS: HEMATOCRIT 43.6 % (36.0-47.0); HEMOGLOBIN 14.8 g/dl (12.0-15.5); MEAN CORPUSCULAR HEMOGLOBIN 29.4 pg (27.0-33.0); MEAN CORPUSCULAR HGB CONC 33.9 g/dl (32.0-36.5); MEAN CORPUSCULAR VOLUME 86.7 fl (80.0-96.0); PLATELET COUNT, AUTOMATED 199 10^3/uL (150-450); RED BLOOD COUNT 5.03 10^6/uL (4.00-5.40); WHITE BLOOD COUNT 6.8 10^3/uL (4.0-10.0)
[2020-10-27] MEDS ORDERED: ACETAMINOPHEN 1000MG 100ML IV BTL (OFIRMEV) (J0131 PER 10MG) As Ordered ONE (15:42)
[2020-10-27] MEDS ORDERED: KETOROLAC 60MG 2ML VIAL As Ordered ONE (15:54)
--- NOTE | 2020-10-27 16:24 | ROOPDOC ---
[facility] Report Of Operation Report of Operation DATE OF PROCEDURE: 10/27/20 PREOPERATIVE DIAGNOSES: 1. Endometrial polyp POSTOPERATIVE DIAGNOSES: 1. Endometrial polyp PROCEDURE PERFORMED: Hysteroscopy, myosure, dilation and curettage. SURGEON: Cynthia Nuñez MD CLUB CAR ATTENDANT: None. ANESTHESIA: General via laryngeal mask airway ESTIMATED BLOOD LOSS: 5 ml IV FLUIDS: 900 mL of lactated Ringer's solution. URINE OUTPUT: Not obtained. PREOPERATIVE ANTIBIOTICS: None. OPERATIVE FINDINGS: Posterior wall endometrial polyp. Bilateral ostia was visualized. DESCRIPTION OF PROCEDURE: After informed consent was obtained written consent was reviewed, the patient brought to operating room where she was placed under general anesthesia. She was then placed in lithotomy position and was prepped and draped in normal sterile fashion. Time-out in the operating room was then performed identifying the patient, procedure be performed as well as drug allergies. [place] speculum was placed revealing the cervix. Anterior lip of the cervix grasped with a single-tooth tenaculum. The uterus then sounded to 8 cm. The cervix then sequentially dilated using Hanks dilators. Hysteroscope was then advanced through the cervical os and endometrial cavity was observed with the above-noted findings. Myosure was then advanced. Endometrial polyp was morcellated. Myosure device was removed. Hysteroscope was then removed. Sharp curette was then advanced through the cervical os to the level of the fundus and the uterus curetted in a 360 degree fashion. Tissue was obtained and this was sent to pathology for evaluation. The single-tooth tenaculum was then removed. Tenaculum sites were noted be hemostatic. The speculum was then removed. The patient was then taken out of lithotomy position, was awakened from general anesthesia and taken recovery in stable condition. CYNTHIA NUÑEZ MD. Oct 27, 2020 16:24
[2020-10-27] MEDS ORDERED: ONDANSETRON 4MG/2ML VIAL IV PRN (17:05)
[2020-10-27] MEDS ORDERED: LR 1,000 ML IV SCH (17:05)
[2020-10-27] MEDS ORDERED: fentaNYL 100 MCG/2 ML INJECTION (J3010) IV PRN (17:05)
[2020-10-27 17:37] VITALS: BP 145/70
== END 2020-10-27 17:37 | disposition home or self-care (01) ==
LOC: M SDC 12:31
PROVIDERS: ATTEND Obstetrics & Gynecology
DX: N95.0 Postmenopausal bleeding (principal); N84.0 Polyp of corpus uteri; I10 Essential (primary) hypertension; E78.5 Hyperlipidemia, unspecified; K57.90 Diverticulosis of intestine, part unspecified, without perforation or abscess without bleeding; Z79.899 Other long term (current) drug therapy; F32.9 Major depressive disorder, single episode, unspecified; J44.9 Chronic obstructive pulmonary disease, unspecified; Z87.891 Personal history of nicotine dependence
CPT/HCPCS: 36415; 58558; 80053; 85027; 86850; 86900; 86901; 88305; J0131; J1100; J1885; J2250; J2405; J3010

== ENCOUNTER → 2020-11-07 | Outpatient (CLI) | payer MEDICARE, MEDICAID ==
[~2020-11-07] MED LIST changes: -LR 1,000 ML IV ONE
--- NOTE | 2020-11-07 10:55 | REPMRS ---
Patient History The patient states she has not had a clinical breast exam in over a year. Family history of prostate cancer at age 50 or over in father, ovarian cancer under age 50 in sister. Patient states no breast complaints today. Patient has signed MRS History Sheet. Digital Woman Screen Mammo: November 07, 2020 - Exam #: [id number] Bilateral CC and MLO view(s) were taken. Technologist: Valarie Mendes, Insurance Special Agent Prior study comparison: November 06, 2018, bilateral digital woman screen mammo performed at [facility]. April 17, 2017, digital woman screen mammo performed at [facility]. April 05, 2016, digital woman screen mammo performed at [facility]. FINDINGS: The breast tissue is almost entirely fat. The [place] volumetric breast density category is: A. There has been no change in the appearance of the mammogram from the prior studies. There is no interval development of dominant mass, architectural distortion, or grouped microcalcification typical of malignancy. 3-D tomosynthesis shows no additional findings. Assessment: BI-RADS/ACR category 1 mammogram. Negative Mammogram. Recommendation Routine screening mammogram of both breasts in 1 year (for women over age 40). This patient's [facility] Lifetime Breast Cancer RIsk is estimated at 5.7 %. This mammogram was interpreted with the aid of an FDA-approved computer-aided dectection system. Electronically Signed By: Moose Louis MD 11/07/20 1448
--- NOTE | 2020-11-07 11:10 | DEXAMM ---
INDICATION: Z13.820 SCREENING FOR OSTEOPOROSIS. COMPARISON: Comparison bone densitometry studies November 06, 2018, April 17, 2015, March 20, 2012.. TECHNIQUE: Bone density was measured using dual-energy x-ray absorptionmetry (DEXA). FINDINGS: AP SPINE L1-L4 BMD 0.954 g/cm2 Young Adult T-Score -1.9 Age Matched Z-Score -0.4. LT FEMUR, TOTAL BMD 0.977 g/cm2 Young Adult T-Score -0.2 Age Matched Z-Score 0.9. LT NECK BMD 0.834 g/cm2 Young Adult T-Score -1.5 Age Matched Z-Score -0.1. RT FEMUR, TOTAL BMD 0.958 g/cm2 Young Adult T-Score -0.4 Age Matched Z-Score 0.7. RT NECK BMD 0.825 g/cm2 Young Adult T-Score -1.5 Age Matched Z-Score -0.1. IMPRESSION: There is low bone density of the spine. There is low bone density of the left hip. There is low bone density of the right hip. The density of the spine has decreased 3.2% since the initial exam on March 20, 2012. The density of the spine decreased 1.0% since most recent exam on November 06, 2018. The density of the left hip has decreased 5.5% since initial exam on March 20, 2012. The density of the left hip has decreased 0.8% since most recent exam on November 06, 2018. The density of the right hip has decreased 6.5% since the initial exam on March 20, 2012. The density of the right hip has decreased 2.4% since the most recent exam on November 06, 2018. FOLLOW-UP: Recommendation for the next bone density exam: 2 years. <Electronically signed by Moose Louis > 11/07/20 1101
== END ==
LOC: M WHC 08:17
PROVIDERS: ATTEND Internal Medicine
DX: Z12.31 Encounter for screening mammogram for malignant neoplasm of breast (principal); Z13.820 Encounter for screening for osteoporosis; Z80.41 Family history of malignant neoplasm of ovary; M85.88 Other specified disorders of bone density and structure, other site
CPT/HCPCS: 77063; 77067; 77080; G0463

== ENCOUNTER → 2021-01-22 | Outpatient (CLI) | payer MEDICARE, MEDICAID ==
[2021-01-22 16:07] LABS: ALBUMIN 3.8 GM/DL (3.2-5.2); BLOOD UREA NITROGEN 18 MG/DL (7-18); CALCIUM LEVEL 9.7 MG/DL (8.8-10.2); CARBON DIOXIDE LEVEL 32 MEQ/L (21-32); CHLORIDE LEVEL 100 MEQ/L (98-107); CREATININE FOR GFR 0.86 MG/DL (0.55-1.30); GLOMERULAR FILTRATION RATE > 60.0 (>45); GLUCOSE, FASTING 112 MG/DL (70-100); NT-PRO BNP 76 PG/ML (<125); PHOSPHORUS LEVEL 3.8 MG/DL (2.5-4.9); POTASSIUM SERUM 3.9 MEQ/L (3.5-5.1); SODIUM LEVEL 138 MEQ/L (136-145)
== END ==
LOC: M PLALAB 13:27
PROVIDERS: ATTEND Internal Medicine Cardiovascular Disease
DX: I10 Essential (primary) hypertension (principal); R06.02 Shortness of breath; Z68.39 Body mass index [BMI] 39.0-39.9, adult

== ENCOUNTER → 2021-05-24 | Outpatient (CLI) | payer MEDICARE, MEDICAID ==
[2021-05-24 14:24] LABS: ALBUMIN 3.8 GM/DL (3.2-5.2); ALT/SGPT 28 U/L (12-78); BILIRUBIN,TOTAL 0.6 MG/DL (0.2-1.0); BLOOD UREA NITROGEN 16 MG/DL (7-18); CALCIUM LEVEL 9.5 MG/DL (8.8-10.2); CARBON DIOXIDE LEVEL 33 MEQ/L (21-32); CHLORIDE LEVEL 105 MEQ/L (98-107); CHOLESTEROL LEVEL 163 MG/DL (<200); CHOLESTEROL RISK RATIO 2.328 (<5); CREATININE FOR GFR 0.81 MG/DL (0.55-1.30); GLOMERULAR FILTRATION RATE > 60.0 (>45); GLUCOSE, FASTING 101 MG/DL (70-100); HDL CHOLESTEROL 70 MG/DL (>40); LDL CHOLESTEROL 72 MG/DL (<100); NON-HDL-C 93 MG/DL; SODIUM LEVEL 139 MEQ/L (136-145); TRIGLYCERIDES LEVEL 104 MG/DL (<150)
[2021-05-24 15:15] LABS: HEMOGLOBIN A1c 6.2 %
== END ==
LOC: M PLALAB 10:19
PROVIDERS: ATTEND Family Medicine
DX: E78.5 Hyperlipidemia, unspecified (principal); I10 Essential (primary) hypertension; Z13.1 Encounter for screening for diabetes mellitus; Z79.899 Other long term (current) drug therapy

== ENCOUNTER → 2021-06-13 | Outpatient (CLI) | payer MEDICARE, MEDICAID | LOC: M PLAIMG 12:18 | PROVIDERS: ATTEND Internal Medicine Pulmonary Disease | DX: R06.02 Shortness of breath (principal) ==

== ENCOUNTER 2022-09-23 09:22 | Emergency (ER) | payer MEDICARE, MEDICAID ==
[~2022-09-23] VITALS: Ht 182.9 cm; Wt 136.4 kg
[~2022-09-23 09:22] MED LIST changes: +ALBU6.7H6 INH; +ALEN70TA87 PO; -FOSA70TA PO; -PROV108A INH
[2022-09-23 09:23] VITALS: TEMP 98
[2022-09-23 10:26] LABS: BASO # 0.1 10^3/uL (0.0-0.2); EOS # 0.2 10^3/uL (0.0-0.5); EOS % 3.8 % (0.0-3.0); HEMATOCRIT 44.5 % (36.0-47.0); HEMOGLOBIN 14.9 g/dl (12.0-15.5); LYMPH # 1.3 10^3/uL (1.5-5.0); LYMPH % 21.6 % (24.0-44.0); MEAN CORPUSCULAR HEMOGLOBIN 29.1 pg (27.0-33.0); MEAN CORPUSCULAR HGB CONC 33.5 g/dl (32.0-36.5); MEAN CORPUSCULAR VOLUME 86.9 fl (80.0-96.0); MONO # 0.5 10^3/uL (0.0-0.8); MONO % 7.4 % (2.0-8.0); NEUTROPHILS % 65.7 % (36.0-66.0); PLATELET COUNT, AUTOMATED 182 10^3/uL (150-450); RED BLOOD COUNT 5.12 10^6/uL (4.00-5.40); WHITE BLOOD COUNT 6.1 10^3/uL (4.0-10.0)
[2022-09-23 10:51] LABS: CPK CREATINE PHOSPHOKINASE 102 U/L (34-145)
[2022-09-23 10:52] LABS: ALBUMIN 3.9 G/DL (3.2-5.2); ALKALINE PHOSPHATASE 84 U/L (46-116); ALT/SGPT 20 U/L (7.0-40); AST/SGOT 9 U/L (<34); BILIRUBIN,DIRECT 0.2 MG/DL (<0.4); BILIRUBIN,TOTAL 0.7 MG/DL (0.3-1.2); BLOOD UREA NITROGEN 14 MG/DL (9-23); CALCIUM LEVEL 8.9 MG/DL (8.3-10.6); CARBON DIOXIDE LEVEL 30 MMOL/L (20-31); CHLORIDE LEVEL 103 MMOL/L (98-107); CK-MB VALUE MASS 1.1 NG/ML (<3.6); CREATININE FOR GFR 0.74 MG/DL (0.55-1.30); GLOMERULAR FILTRATION RATE > 60.0 (>45); GLUCOSE, FASTING 137 MG/DL (74-106); MB/CK RELATIVE INDEX 1.07 (< OR =4); POTASSIUM SERUM 3.7 MMOL/L (3.5-5.1); SODIUM LEVEL 136 MMOL/L (136-145); TOTAL PROTEIN 6.9 G/DL (5.7-8.2)
[2022-09-23 10:53] LABS: THYROID STIMULATING HORMONE 1.435 uIU/ML (0.55-4.78)
[2022-09-23 12:18] LABS: CK-MB VALUE MASS 1.4 NG/ML (<3.6)
[2022-09-23 12:20] LABS: MB/CK RELATIVE INDEX 1.5 (< OR =4)
[2022-09-23 13:00] VITALS: BP 164/86; O2SAT 94
== END 2022-09-23 13:11 | disposition home or self-care (01) ==
LOC: M ED 09:22
DX: R06.02 Shortness of breath (principal); I10 Essential (primary) hypertension; E78.5 Hyperlipidemia, unspecified; J44.9 Chronic obstructive pulmonary disease, unspecified; J45.909 Unspecified asthma, uncomplicated; Z79.52 Long term (current) use of systemic steroids; Z79.811 Long term (current) use of aromatase inhibitors; Z79.899 Other long term (current) drug therapy

== ENCOUNTER → 2022-12-30 | Outpatient (CLI) | payer MEDICARE, MEDICAID | LOC: M RAD 08:12 | PROVIDERS: ATTEND Internal Medicine Pulmonary Disease | DX: Z12.2 Encounter for screening for malignant neoplasm of respiratory organs (principal); Z87.891 Personal history of nicotine dependence; J44.9 Chronic obstructive pulmonary disease, unspecified; I10 Essential (primary) hypertension; E78.5 Hyperlipidemia, unspecified; E66.01 Morbid (severe) obesity due to excess calories; Z79.899 Other long term (current) drug therapy ==

== ENCOUNTER → 2022-12-30 | Outpatient (CLI) | payer MEDICARE, MEDICAID ==
[2022-12-30 08:47] LABS: BASO # 0.1 10^3/uL (0.0-0.2); BASO % 0.9 % (0.0-1.0); EOS # 0.4 10^3/uL (0.0-0.5); EOS % 6.1 % (0.0-3.0); HEMATOCRIT 44.5 % (36.0-47.0); HEMOGLOBIN 14.8 g/dl (12.0-15.5); LYMPH # 1.9 10^3/uL (1.5-5.0); LYMPH % 29.1 % (24.0-44.0); MEAN CORPUSCULAR HEMOGLOBIN 29.3 pg (27.0-33.0); MEAN CORPUSCULAR HGB CONC 33.3 g/dl (32.0-36.5); MEAN CORPUSCULAR VOLUME 88.1 fl (80.0-96.0); MONO # 0.6 10^3/uL (0.0-0.8); MONO % 8.4 % (2.0-8.0); NEUTROPHILS # 3.6 10^3/uL (1.5-8.5); NEUTROPHILS % 55.2 % (36.0-66.0); PLATELET COUNT, AUTOMATED 194 10^3/uL (150-450); RED BLOOD COUNT 5.05 10^6/uL (4.00-5.40); WHITE BLOOD COUNT 6.5 10^3/uL (4.0-10.0)
[2022-12-30 09:11] LABS: HEMOGLOBIN A1c 5.6 % (4.0-6.0)
[2022-12-30 09:23] LABS: ALBUMIN 3.7 G/DL (3.2-5.2); ALKALINE PHOSPHATASE 74 U/L (46-116); ALT/SGPT 16 U/L (7.0-40); AST/SGOT 11 U/L (<34); BILIRUBIN,TOTAL 0.8 MG/DL (0.3-1.2); BLOOD UREA NITROGEN 14 MG/DL (9-23); CALCIUM LEVEL 9.1 MG/DL (8.3-10.6); CARBON DIOXIDE LEVEL 29 MMOL/L (20-31); CHLORIDE LEVEL 105 MMOL/L (98-107); CHOLESTEROL LEVEL 152 MG/DL (<200); CHOLESTEROL RISK RATIO 2.24 (<5); CREATININE FOR GFR 0.76 MG/DL (0.55-1.30); FREE T4 1.04 NG/DL (0.89-1.76); GLOMERULAR FILTRATION RATE > 60.0 (>45); GLUCOSE, FASTING 126 MG/DL (74-106); HDL CHOLESTEROL 67.8 MG/DL (>40); LDL CHOLESTEROL 62.2 MG/DL (<100); MAGNESIUM LEVEL 1.8 MG/DL (1.8-2.4); NON-HDL-C 84.2 MG/DL; POTASSIUM SERUM 4.1 MMOL/L (3.5-5.1); SODIUM LEVEL 139 MMOL/L (136-145); TOTAL PROTEIN 6.8 G/DL (5.7-8.2); TRIGLYCERIDES LEVEL 110 MG/DL (<150)
== END ==
LOC: M LAB 08:16
PROVIDERS: ATTEND Physician Assistant
DX: J44.9 Chronic obstructive pulmonary disease, unspecified (principal); I10 Essential (primary) hypertension; E78.5 Hyperlipidemia, unspecified; E66.01 Morbid (severe) obesity due to excess calories

== ENCOUNTER → 2023-01-16 | Outpatient (CLI) | payer MEDICARE, MEDICAID | LOC: M WHC 14:15 | PROVIDERS: ATTEND Physician Assistant | DX: Z12.31 Encounter for screening mammogram for malignant neoplasm of breast (principal); Z13.820 Encounter for screening for osteoporosis; M85.851 Other specified disorders of bone density and structure, right thigh; M85.852 Other specified disorders of bone density and structure, left thigh; M85.88 Other specified disorders of bone density and structure, other site ==

== ENCOUNTER → 2023-06-11 | Outpatient (CLI) | payer MEDICARE, MEDICAID ==
[2023-06-11 11:28] LABS: BASO # 0.1 10^3/uL (0.0-0.2); BASO % 1.1 % (0.0-1.0); EOS # 0.4 10^3/uL (0.0-0.5); EOS % 6.3 % (0.0-3.0); HEMATOCRIT 43.4 % (36.0-47.0); HEMOGLOBIN 14.5 g/dl (12.0-15.5); LYMPH # 1.9 10^3/uL (1.5-5.0); LYMPH % 29.9 % (24.0-44.0); MEAN CORPUSCULAR HEMOGLOBIN 29.8 pg (27.0-33.0); MEAN CORPUSCULAR HGB CONC 33.4 g/dl (32.0-36.5); MEAN CORPUSCULAR VOLUME 89.1 fl (80.0-96.0); MONO # 0.5 10^3/uL (0.0-0.8); MONO % 8.3 % (2.0-8.0); NEUTROPHILS # 3.4 10^3/uL (1.5-8.5); NEUTROPHILS % 54.2 % (36.0-66.0); PLATELET COUNT, AUTOMATED 197 10^3/uL (150-450); RED BLOOD COUNT 4.87 10^6/uL (4.00-5.40); WHITE BLOOD COUNT 6.2 10^3/uL (4.0-10.0)
[2023-06-11 11:49] LABS: HEMOGLOBIN A1c 5.8 % (4.0-6.0)
[2023-06-11 11:59] LABS: THYROID STIMULATING HORMONE 2.026 uIU/ML (0.55-4.78)
[2023-06-11 12:00] LABS: FREE T4 1.08 NG/DL (0.89-1.76)
[2023-06-11 12:04] LABS: ALBUMIN 3.7 G/DL (3.2-5.2); ALKALINE PHOSPHATASE 88 U/L (46-116); ALT/SGPT 18 U/L (7.0-40); AST/SGOT 10 U/L (<34); BILIRUBIN,TOTAL 0.6 MG/DL (0.3-1.2); BLOOD UREA NITROGEN 21 MG/DL (9-23); CALCIUM LEVEL 9.3 MG/DL (8.3-10.6); CARBON DIOXIDE LEVEL 30 MMOL/L (20-31); CHLORIDE LEVEL 108 MMOL/L (98-107); CHOLESTEROL LEVEL 154 MG/DL (<200); CHOLESTEROL RISK RATIO 2.49 (<5); CREATININE FOR GFR 0.73 MG/DL (0.55-1.30); GLOMERULAR FILTRATION RATE > 60.0 (>45); GLUCOSE, FASTING 110 MG/DL (74-106); HDL CHOLESTEROL 61.8 MG/DL (>40); LDL CHOLESTEROL 74.8 MG/DL (<100); NON-HDL-C 92.2 MG/DL; POTASSIUM SERUM 4.2 MMOL/L (3.5-5.1); SODIUM LEVEL 142 MMOL/L (136-145); TOTAL PROTEIN 6.4 G/DL (5.7-8.2); TRIGLYCERIDES LEVEL 87 MG/DL (<150)
== END ==
LOC: M PLALAB 08:00
PROVIDERS: ATTEND Physician Assistant
DX: I10 Essential (primary) hypertension (principal); R73.01 Impaired fasting glucose; E78.5 Hyperlipidemia, unspecified; E66.09 Other obesity due to excess calories

== ENCOUNTER → 2023-11-03 | Outpatient (CLI) | payer MEDICARE, MEDICAID ==
[2023-11-03 10:53] LABS: BASO # 0.1 10^3/uL (0.0-0.2); BASO % 0.9 % (0.0-1.0); EOS # 0.5 10^3/uL (0.0-0.5); EOS % 7.2 % (0.0-3.0); LYMPH % 29.3 % (24.0-44.0); MEAN CORPUSCULAR HEMOGLOBIN 29.4 pg (27.0-33.0); MEAN CORPUSCULAR HGB CONC 33.3 g/dl (32.0-36.5); MEAN CORPUSCULAR VOLUME 88.2 fl (80.0-96.0); MONO # 0.5 10^3/uL (0.0-0.8); MONO % 6.7 % (2.0-8.0); NEUTROPHILS # 3.8 10^3/uL (1.5-8.5); NEUTROPHILS % 55.5 % (36.0-66.0); PLATELET COUNT, AUTOMATED 197 10^3/uL (150-450); WHITE BLOOD COUNT 6.8 10^3/uL (4.0-10.0)
[2023-11-03 11:08] LABS: HEMOGLOBIN A1c 5.9 % (4.0-6.0)
[2023-11-03 11:32] LABS: ALBUMIN 3.9 G/DL (3.2-5.2); ALKALINE PHOSPHATASE 97 U/L (46-116); ALT/SGPT 18 U/L (7.0-40); AST/SGOT 9 U/L (<34); BILIRUBIN,TOTAL 0.8 MG/DL (0.3-1.2); BLOOD UREA NITROGEN 18 MG/DL (9-23); CALCIUM LEVEL 9.5 MG/DL (8.3-10.6); CARBON DIOXIDE LEVEL 29 MMOL/L (20-31); CHLORIDE LEVEL 107 MMOL/L (98-107); CREATININE FOR GFR 0.74 MG/DL (0.55-1.30); GLOMERULAR FILTRATION RATE > 60.0 (>45); GLUCOSE, FASTING 117 MG/DL (74-106); POTASSIUM SERUM 4.3 MMOL/L (3.5-5.1); SODIUM LEVEL 141 MMOL/L (136-145)
== END ==
LOC: M PLALAB 08:50
PROVIDERS: ATTEND Physician Assistant
DX: R73.01 Impaired fasting glucose (principal); I10 Essential (primary) hypertension; E66.09 Other obesity due to excess calories

== ENCOUNTER → 2023-12-30 | Outpatient (CLI) | payer MEDICAID, MEDICARE, OTHER ==
[2023-12-30 14:05] LABS: BLOOD UREA NITROGEN 22 MG/DL (9-23); CARBON DIOXIDE LEVEL 34 MMOL/L (20-31); CHLORIDE LEVEL 103 MMOL/L (98-107); CREATININE FOR GFR 0.81 MG/DL (0.55-1.30); GLOMERULAR FILTRATION RATE > 60.0 (>45); GLUCOSE, FASTING 119 MG/DL (74-106); MAGNESIUM LEVEL 1.9 MG/DL (1.8-2.4); POTASSIUM SERUM 4.2 MMOL/L (3.5-5.1); SODIUM LEVEL 140 MMOL/L (136-145)
== END ==
LOC: M PLALAB 09:49
PROVIDERS: ATTEND Internal Medicine Cardiovascular Disease
DX: R53.83 Other fatigue (principal)

== ENCOUNTER → 2024-03-05 | Outpatient (CLI) | payer MEDICARE, MEDICAID | LOC: M RAD 15:33 | PROVIDERS: ATTEND Internal Medicine Pulmonary Disease | DX: Z12.2 Encounter for screening for malignant neoplasm of respiratory organs (principal); Z87.891 Personal history of nicotine dependence; I70.0 Atherosclerosis of aorta; I77.810 Thoracic aortic ectasia; I25.10 Atherosclerotic heart disease of native coronary artery without angina pectoris ==

== ENCOUNTER 2024-06-11 12:54 | Emergency (ER) | payer MEDICARE, MEDICAID ==
[~2024-06-11] VITALS: Ht 177.8 cm; Wt 138.2 kg
[2024-06-11 13:04] VITALS: BP 187/91; TEMP 96.7; O2SAT 96
[2024-06-11] MEDS ORDERED: HYDR-643 (13:06)
== END 2024-06-11 13:20 | disposition left against medical advice (07) ==
LOC: EDBD 12:54 → M ED 12:54
DX: Z53.21 Procedure and treatment not carried out due to patient leaving prior to being seen by health care provider (principal)